=== PATIENT | male | born 1980 | race Caucasian/White ===

== ENCOUNTER 2019-08-14 10:12 | Inpatient (IN) | payer MEDICAID ==
[~2019-08-14] VITALS: Ht 177.8 cm; Wt 84.5 kg
[2019-08-14] MEDS ORDERED: ZOLPIDEM TARTRATE 10 MG TABLET PO PRN (11:15)
[2019-08-14 11:45] LABS: BASOPHILS % (AUTO) 0.3 % (0.0-2.0); EOSINOPHILS % (AUTO) 3.7 % (1.0-6.0); HEMOGLOBIN 13.5 g/dL (13.5-17.5); LYMPHOCYTES # (AUTO) 2.2 K/uL (1.0-4.8); LYMPHOCYTES % (AUTO) 34.3 % (22.0-44.0); MEAN CORPUSCULAR HEMOGLOBIN 31.8 pg (26.0-34.0); MEAN CORPUSCULAR HGB CONC 33.9 G/dL (31.0-37.0); MEAN CORPUSCULAR VOLUME 94 fL (80-100); MONOCYTES # (AUTO) 0.7 K/uL (0.1-1.0); MONOCYTES % (AUTO) 10.9 % (2.0-9.0); NEUTROPHILS # (AUTO) 3.3 K/uL (1.8-7.7); NEUTROPHILS % (AUTO) 50.8 % (40.0-70.0); PLATELET COUNT (AUTO) 281 K/uL (150-450); RED BLOOD CELL COUNT(AUTO) 4.25 MIL/uL (4.50-5.90)
[2019-08-14 11:57] LABS: ANION GAP 5 mmol/L (8-16); CALCIUM, TOTAL 8.6 mg/dL (8.8-10.5); CARBON DIOXIDE 29 mmol/L (22-29); CHLORIDE 106 mmol/L (98-107); CREATININE 0.73 mg/dL (0.60-1.30); GLOMERULAR FILTR. RATE CALC > 60 mL/min (>60); GLUCOSE,RANDOM 122 mg/dL (70-110); SODIUM SERUM 140 mmol/L (136-145); UREA NITROGEN, BLOOD 18 mg/dL (7-18)
[2019-08-14 12:02] LABS: ALANINE AMINOTRANSFERASE 24 U/L (12-78); ALBUMIN 3.1 g/dL (3.4-5.0); ALKALINE PHOSPHATASE 97 U/L (46-116); ASPARTATE AMINOTRANSFERASE 14 U/L (15-37); BILIRUBIN,TOTAL 0.1 mg/dL (0.1-1.0); TOTAL PROTEIN, SERUM 6.7 g/dL (6.4-8.2)
[2019-08-14 13:39] VITALS: BP 119/72
[2019-08-14 17:08] VITALS: BP 130/58
[2019-08-15] MEDS ORDERED: PETROLATUM,WHITE 28 GM JELLY TP PRN (05:45)
[2019-08-15] MEDS ORDERED: DOCUSATE SODIUM 100 MG CAPSULE PO PRN (05:45)
[2019-08-15] MEDS ORDERED: CloNIDine HCL 0.1 MG TABLET PO PRN (05:45)
[2019-08-15] MEDS ORDERED: ALBUTEROL SULFATE HFA 90 MCG/PUFF 8 GM INHALER IH PRN (05:45)
[2019-08-15] MEDS ORDERED: BACITRACIN 28.4 GM OINTMENT TP PRN (05:45)
[2019-08-15] MEDS ORDERED: MAG HYDROX/AL HYDROX/SIMETH ES 30 ML SUSPENSION UDCUP PO PRN (05:45)
[2019-08-15] MEDS ORDERED: OMEPRAZOLE 20 MG CAPSULE PO PRN (05:45)
[2019-08-15] MEDS ORDERED: BENZOCAINE/MENTHOL LOZENGE MM PRN (05:45)
[2019-08-15] MEDS ORDERED: LOPERAMIDE HCL 2 MG CAPSULE PO PRN (05:45)
[2019-08-15] MEDS ORDERED: ONDANSETRON HCL 4 MG TABLET PO PRN (05:45)
[2019-08-15] MEDS ORDERED: MAGNESIUM HYDROXIDE SUSPENSION 30 ML UDCUP PO PRN (05:45)
[2019-08-15] MEDS ORDERED: ACETAMINOPHEN 325 MG TABLET PO PRN (05:45)
[2019-08-15 07:36] LABS: FREE T4 (FREE THYROXINE) 1.08 ng/dL (0.76-1.46); THYROID STIMULATING HORMONE 0.19 uIU/mL (0.36-3.74)
[2019-08-15 09:36] VITALS: BP 112/69
[2019-08-15] MEDS ORDERED: INFLUENZA VIRUS VACCINE QVS 2019-20 (3YR+)/PF 60 MCG/0.5 ML SYRINGE IM ONE (09:45)
[2019-08-15 16:30] VITALS: BP 119/86
[2019-08-16 09:30] VITALS: BP 116/69
[2019-08-16] MEDS: ASPIRIN 81 MG CHEWABLE TABLET PO PRN ×2 (10:32→19:32)
[2019-08-16] MEDS: NICOTINE 21 MG/24 HOUR PATCH TD SCH (14:09)
[2019-08-16 15:42] VITALS: BP 98/67
[2019-08-16] MEDS: IBUPROFEN 600 MG TABLET PO PRN (15:46)
[2019-08-16] MEDS: LORazepam 2 MG TABLET PO PRN (15:59)
[2019-08-16] MEDS: OLANZapine 5 MG RAPDIS TABLET PO SCH ×2 (19:31→20:53)
[2019-08-17 08:00] VITALS: BP 113/70
[2019-08-17] MEDS: ASPIRIN 81 MG CHEWABLE TABLET PO PRN ×2 (08:16→17:03)
[2019-08-17] MEDS: NICOTINE 21 MG/24 HOUR PATCH TD SCH (08:17)
[2019-08-17 08:38] VITALS: BP 113/70
[2019-08-17] MEDS ORDERED: FLUoxetine HCL 20 MG CAPSULE PO SCH (09:00)
[2019-08-17] MEDS: LORazepam 2 MG TABLET PO PRN ×2 (12:14→17:03)
[2019-08-17] MEDS: BuPROPion HCL XL 150 MG ER TABLET PO SCH (12:14)
[2019-08-17 17:00] VITALS: BP 119/76
[2019-08-17 18:46] VITALS: BP_SYST 119; BP_SYST 134; BP_DIAS 76; BP_DIAS 77
[2019-08-17] MEDS: OLANZapine 5 MG RAPDIS TABLET PO SCH (20:26)
[2019-08-18] MEDS: BuPROPion HCL XL 150 MG ER TABLET PO SCH (09:33)
[2019-08-18] MEDS: NICOTINE 21 MG/24 HOUR PATCH TD SCH (09:33)
[2019-08-18 12:49] VITALS: BP 109/67
[2019-08-18] MEDS: LORazepam 2 MG TABLET PO PRN ×2 (12:49→17:10)
[2019-08-18] MEDS: IBUPROFEN 600 MG TABLET PO PRN (12:49)
[2019-08-18 16:39] VITALS: BP 110/62
[2019-08-18 17:00] VITALS: BP 110/72
[2019-08-18] MEDS: OLANZapine 5 MG RAPDIS TABLET PO SCH (21:02)
[2019-08-18] MEDS: FLUTICASONE PROPIONATE 50 MCG/SPRAY 16 GM NASAL SPRAY NASAL SCH (21:03)
[2019-08-18] MEDS: SODIUM CHLORIDE 0.65% 44 ML NASAL SPRAY NASAL SCH (21:03)
[2019-08-19] MEDS: BuPROPion HCL XL 150 MG ER TABLET PO SCH (09:20)
[2019-08-19] MEDS: SODIUM CHLORIDE 0.65% 44 ML NASAL SPRAY NASAL SCH ×6 (09:21→20:16)
[2019-08-19 09:23] VITALS: BP 104/69
[2019-08-19] MEDS: NICOTINE 21 MG/24 HOUR PATCH TD SCH (09:26)
[2019-08-19] MEDS: LORazepam 2 MG TABLET PO PRN (14:32)
[2019-08-19 15:17] VITALS: BP 112/68
[2019-08-19] MEDS: IBUPROFEN 600 MG TABLET PO PRN (15:17)
[2019-08-19] MEDS: HALOPERIDOL 5 MG TABLET PO PRN (16:00)
[2019-08-19 19:20] VITALS: BP 112/81
[2019-08-19] MEDS: OLANZapine 5 MG RAPDIS TABLET PO SCH (20:07)
[2019-08-19] MEDS: FLUTICASONE PROPIONATE 50 MCG/SPRAY 16 GM NASAL SPRAY NASAL SCH (20:07)
[2019-08-20] MEDS: BuPROPion HCL XL 150 MG ER TABLET PO SCH (08:10)
[2019-08-20] MEDS: SODIUM CHLORIDE 0.65% 44 ML NASAL SPRAY NASAL SCH ×4 (08:11→22:38)
[2019-08-20] MEDS: NICOTINE 21 MG/24 HOUR PATCH TD SCH (08:16)
[2019-08-20 09:53] VITALS: BP 138/79
[2019-08-20] MEDS: ASPIRIN 81 MG CHEWABLE TABLET PO PRN (12:30)
[2019-08-20] MEDS: HALOPERIDOL 5 MG TABLET PO PRN ×2 (12:31→18:37)
[2019-08-20 16:53] VITALS: BP 107/61
[2019-08-20] MEDS: IBUPROFEN 600 MG TABLET PO PRN (17:53)
[2019-08-20] MEDS: LORazepam 2 MG TABLET PO PRN (18:37)
[2019-08-20] MEDS: FLUTICASONE PROPIONATE 50 MCG/SPRAY 16 GM NASAL SPRAY NASAL SCH (22:38)
[2019-08-20] MEDS: OLANZapine 5 MG RAPDIS TABLET PO SCH (22:38)
[2019-08-21] MEDS: BuPROPion HCL XL 150 MG ER TABLET PO SCH (08:43)
[2019-08-21] MEDS: NICOTINE 21 MG/24 HOUR PATCH TD SCH (08:43)
[2019-08-21] MEDS: SODIUM CHLORIDE 0.65% 44 ML NASAL SPRAY NASAL SCH ×4 (08:47→20:27)
[2019-08-21 08:51] VITALS: BP 131/80
[2019-08-21] MEDS: LORazepam 2 MG TABLET PO PRN ×2 (10:24→17:59)
[2019-08-21] MEDS: HALOPERIDOL 5 MG TABLET PO PRN ×2 (10:24→17:59)
[2019-08-21 17:15] VITALS: BP 118/59
[2019-08-21] MEDS: OLANZapine 5 MG RAPDIS TABLET PO SCH (20:28)
[2019-08-21] MEDS: FLUTICASONE PROPIONATE 50 MCG/SPRAY 16 GM NASAL SPRAY NASAL SCH (20:33)
[2019-08-22 08:59] VITALS: BP 121/83
[2019-08-22] MEDS: SODIUM CHLORIDE 0.65% 44 ML NASAL SPRAY NASAL SCH (09:12)
[2019-08-22] MEDS: NICOTINE 21 MG/24 HOUR PATCH TD SCH (09:14)
[2019-08-22] MEDS: BuPROPion HCL XL 150 MG ER TABLET PO SCH (09:15)
[2019-08-22] MEDS: ASPIRIN 81 MG CHEWABLE TABLET PO PRN (10:47)
[2019-08-22] MEDS: LORazepam 2 MG TABLET PO PRN (10:52)
[2019-08-22] MEDS: HALOPERIDOL 5 MG TABLET PO PRN (11:18)
[2019-08-22] MEDS ORDERED: BUPR-93 PO (13:04)
[2019-08-22] MEDS ORDERED: OLAN15TA2 PO (13:05)
[2019-08-22] MEDS ORDERED: FLUT16H NASAL (13:07)
== END 2019-08-22 15:05 | disposition home or self-care (01) | DRG 885 ==
LOC: EMS 10:12 → 3EI 12:10
PROVIDERS: ADMIT Psychiatry & Neurology Psychiatry; ATTEND Psychiatry & Neurology Psychiatry
DX: F31.4 Bipolar disorder, current episode depressed, severe, without psychotic features (principal); R45.851 Suicidal ideations; G89.29 Other chronic pain; K59.00 Constipation, unspecified; R45.850 Homicidal ideations; Z59.0 Homelessness; G47.00 Insomnia, unspecified; Z91.19 Patient's noncompliance with other medical treatment and regimen
CPT/HCPCS: 70220; 84439; 84443; G0480

== ENCOUNTER 2019-08-29 16:25 | Emergency (ER) | payer MEDICAID ==
[~2019-08-29] VITALS: Ht 177.8 cm; Wt 85.0 kg
[~2019-08-29 16:25] MED LIST: BUPR-93 PO; FLUT16H NASAL; OLAN15TA2 PO
[2019-08-29] MEDS ORDERED: MELA3TAB66 PO (17:59)
[2019-08-29] MEDS ORDERED: TRAZ-257 PO (17:59)
[2019-08-29 18:36] LABS: BASOPHILS % (AUTO) 0.9 % (0.0-2.0); EOSINOPHILS % (AUTO) 0.7 % (1.0-6.0); HEMATOCRIT 38.7 % (41-53); HEMOGLOBIN 13.1 g/dL (13.5-17.5); LYMPHOCYTES # (AUTO) 1.4 K/uL (1.0-4.8); LYMPHOCYTES % (AUTO) 27.3 % (22.0-44.0); MEAN CORPUSCULAR HEMOGLOBIN 31.7 pg (26.0-34.0); MEAN CORPUSCULAR HGB CONC 33.7 G/dL (31.0-37.0); MEAN CORPUSCULAR VOLUME 94 fL (80-100); MONOCYTES # (AUTO) 0.8 K/uL (0.1-1.0); MONOCYTES % (AUTO) 16.1 % (2.0-9.0); NEUTROPHILS # (AUTO) 2.8 K/uL (1.8-7.7); PLATELET COUNT (AUTO) 236 K/uL (150-450); RED BLOOD CELL COUNT(AUTO) 4.11 MIL/uL (4.50-5.90); RED CELL DISTRIBUTION WIDTH 14.4 % (11.5-14.5)
[2019-08-29 18:43] LABS: ANION GAP 6 mmol/L (8-16); CALCIUM, TOTAL 8.5 mg/dL (8.8-10.5); CARBON DIOXIDE 31 mmol/L (22-29); CHLORIDE 102 mmol/L (98-107); CREATININE 0.95 mg/dL (0.60-1.30); GLOMERULAR FILTR. RATE CALC > 60 mL/min (>60); GLUCOSE,RANDOM 102 mg/dL (70-110); SODIUM SERUM 139 mmol/L (136-145); UREA NITROGEN, BLOOD 9 mg/dL (7-18)
[2019-08-29 18:48] LABS: ALANINE AMINOTRANSFERASE 26 U/L (12-78); ALBUMIN 3.7 g/dL (3.4-5.0); ALKALINE PHOSPHATASE 85 U/L (46-116); ASPARTATE AMINOTRANSFERASE 22 U/L (15-37); BILIRUBIN,TOTAL 0.1 mg/dL (0.1-1.0)
[2019-08-29 19:34] VITALS: BP 122/77
== END 2019-08-29 19:40 | disposition home or self-care (01) ==
LOC: EMS 16:28
DX: B34.9 Viral infection, unspecified (principal); F11.90 Opioid use, unspecified, uncomplicated; F31.9 Bipolar disorder, unspecified; F12.90 Cannabis use, unspecified, uncomplicated; F19.90 Other psychoactive substance use, unspecified, uncomplicated